=== PATIENT | male | born 1995 ===

== ENCOUNTER 2016-09-28 14:35 | Emergency (ER) | payer OTHER ==
[2016-09-28 14:19] LABS: BASO % 0.1 % (0-2); EOS % 0.1 % (0-7); HCT-HEMATOCRIT 46.1 % (36.0-53.5); HGB-HEMOGLOBIN 16.4 gm/dl (13.5-17.0); IMMATURE GRANULOCYTES ABSOLUTE 0.06 tho/cmm (0-0.03); IMMATURE GRANULOCYTES PERCENT 0.3 % (0-0.3); LYMPH % 4.1 % (20-45); LYMPH ABSOLUTE COUNT 0.7 tho/cmm (0.8-4.5); MCH (MEAN CORPUSCULAR HGB) 33.3 pg (28.0-32.0); MCHC MEAN CORPUSCULAR HGB CONC 35.6 % (32.0-36.0); MCV (MEAN CELL VOLUME) 93.7 fl (82.0-96.0); MONO % 3.1 % (0-12); MONOCYTE ABSOLUTE COUNT 0.6 tho/cmm (0.0-1.2); NEUTROPHIL ABSOLUTE COUNT 16.5 tho/cmm (1.6-8.0); NEUTROPHIL-AUTOMATED 16.5 tho/cmm (1.6-8.0); NEUTROPHILS % 92.3 % (40-80); PLATELET COUNT 220 tho/cmm (150-450); RED BLOOD COUNT 4.92 mil/cmm (4.40-5.70); RED CELL DISTRIBUTION WIDTH 12.1 % (12.4-16.4); WHITE BLOOD COUNT 17.9 tho/cmm (4.0-10.0)
[2016-09-28 14:35] LABS: ALB/GLOB RATIO 1.5 (0.8-2.0); ALBUMIN 4.4 g/dl (3.5-5.0); ALCOHOL (ETOH) <10 mg/dl (<10); ALKALINE PHOSPHATASE 112 U/L (33-138); ALT/SGPT 23 U/L (12-78); ANION GAP 14 mmol/L (0-20); AST/SGOT 22 U/L (10-40); BILIRUBIN,TOTAL 0.7 mg/dl (0.0-1.5); BLOOD UREA NITROGEN 18 mg/dl (6-24); CALCIUM 8.9 mg/dl (8.5-10.5); CARBON DIOXIDE-VENOUS 26 mmol/L (22-32); CHLORIDE 103 mmol/l (96-110); CREATININE 0.87 mg/dl (0.60-1.30); GLUCOSE 79 mg/dL (70-110); POTASSIUM 4.8 mmol/L (3.7-5.1); SODIUM 138 mmol/L (135-145); eGFR VALUE FOR BLACK >90 mL/Min
[~2016-09-28 14:35] MED LIST: NO HOME MEDICATION XX
[2016-09-28 14:36] LABS: SALICYLATE <2.8 mg/dl (2.8-20)
[2016-09-28 14:37] LABS: ACETAMINOPHEN LEVEL <2.1 ug/ml (10-30)
[2016-09-28 14:53] LABS: URINE BILIRUBIN NEGATIVE (NEG); URINE BLOOD NEGATIVE (NEG); URINE COLOR YELLOW; URINE GLUCOSE (UA) NEGATIVE (NEG); URINE KETONE LARGE (NEG); URINE LEUKOCYTE ESTERASE NEGATIVE (NEG); URINE NITRITE NEGATIVE (NEG); URINE PROTEIN SMALL (NEG); URINE SPECIFIC GRAVITY 1.025 (1.003-1.030)
[2016-09-28 14:54] LABS: URINE APPEARANCE HAZY
== END 2016-09-28 15:23 | disposition other institution (70) ==
LOC: EDMED 14:35
PROVIDERS: Emergency Medicine
DX: R45.851 Suicidal ideations (principal); F31.9 Bipolar disorder, unspecified; F17.200 Nicotine dependence, unspecified, uncomplicated
CPT/HCPCS: G0480